=== PATIENT | male | born 1985 | race Caucasian/White ===

== ENCOUNTER 2021-04-01 00:01 | Emergency (ER) | payer SELFPAY ==
[~2021-04-01] VITALS: Ht 175.3 cm; Wt 63.6 kg
--- NOTE | 2021-04-01 00:07 | PHYS DOC ---
Adult General HPI HPI Patient is a 35-year-old male presents with dental pain which began earlier in the day after eating and breaking off a piece of his upper back right molar. States pain is 8 out of 10, sharp in nature with no radiation. Review of Systems Review of Systems Review of systems otherwise unremarkable except noted in HPI Physical Exam Physical Exam Constitutional: Well developed, well nourished, no acute distress, non-toxic appearance. [] HENT: Normocephalic, atraumatic, bilateral external ears normal, oropharynx moist, no oral exudates, patient's upper right last molar with large dental carry and chip/fracture nose normal. [] Eyes: conjunctiva normal, no discharge. [] Neck: Normal range of motion, no tenderness, supple, no stridor. [] Neurologic: Alert and oriented X 3, normal motor function, normal sensory function, no focal deficits noted. [] Psychologic: Affect normal, judgement normal, mood normal. [] EKG EKG [] Radiology/Procedures Radiology/Procedures [] Heart Score C/O Chest Pain: No Risk Factors: Risk Factors: DM, Current or recent (<one month) smoker, HTN, HLP, family history of CAD, obesity. Risk Scores: Risk Factors: DM, Current or recent (<one month) smoker, HTN, HLP, family history of CAD, obesity. Course & Med Decision Making Course & Med Decision Making Patient is a 35-year-old male who presents with dental pain Patient declined dental block. Given pain medicine and anesthetic. Started on antibiotics. Discussed symptom management at home. Gave contact information for emergency dentist to call in the morning. Gave return precautions to the ED. Patient grateful, verbalized understanding and agreed with plan of discharge. [] Dragon Disclaimer Dragon Disclaimer This electronic medical record was generated, in whole or in part, using a voice recognition dictation system. Departure Departure: Impression: Primary Impression: Pain, dental Disposition: HOME / SELF CARE / HOMELESS Condition: GOOD Referrals: PCP,JUAN (PCP) JOSH NEWBERRY MD Patient Instructions: Dental Pain Additional Instructions: Thank you for coming into the emergency department tonight and allowing us to take care of you. Please read the attached information carefully to go over things we discussed. Please use Tylenol, ibuprofen, and Orajel as we discussed for symptom management at home. It is very important to get a hold of a dentist in the morning, either at the [facility] free dental clinic or the emergency dental clinic at [phone] or call your dentist and try to get in as quickly as possible to discuss further evaluation and treatment. Please come back to the ED with new or concerning symptoms as we discussed. Scripts Amoxicillin/Potassium Clav (AUGMENTIN 164-125 TABLET) 1 Each Tablet 1 TAB PO BID for dental pain for 10 Days, #19 TAB 0 Refills Prov: ROSEANNA GAFFNEY MD 04/01/21 ROSEANNA GAFNFEY MD Apr 01, 2021 00:07
[2021-04-01] MEDS ORDERED: AMOX1TAB61 PO (00:18)
[2021-04-01] MEDS ORDERED: AMOXICILLIN/K CLAV 875/125MG TABLET. PO ONE (00:30)
[2021-04-01] MEDS ORDERED: oxyCODONE/APAP 5/325 1 TAB TABLET PO ONE (00:30)
[2021-04-01] MEDS ORDERED: IBUPROFEN 600 MG TABLET. PO ONE (00:30)
[2021-04-01] MEDS ORDERED: BENZOCAINE ONE 20% MUCOSAL SPRAY. MM (00:30)
[2021-04-01 00:35] VITALS: BP 150/60
== END 2021-04-01 00:35 | disposition home or self-care (01) ==
LOC: ER 00:01
DX: K08.89 Other specified disorders of teeth and supporting structures (principal)
CPT/HCPCS: 99284